=== PATIENT | female | born 1985 | race Caucasian/White ===

== ENCOUNTER 2023-03-10 00:39 | Emergency (ER) | payer SELFPAY ==
[~2023-03-10] VITALS: Ht 162.6 cm; Wt 105.2 kg
[2023-03-10 00:56] VITALS: BP 184/108; O2SAT 99
[2023-03-10] MEDS ORDERED: LIDOCAINE HCL/PF 1% 10 MG/ML 5ML VIAL INFIL ONE (01:30)
[2023-03-10] MEDS ORDERED: BACITRACIN ZINC OINT UDPKT TOP ONE (01:30)
[2023-03-10] MEDS ORDERED: IBUP-2029 PO (03:07)
[2023-03-10 03:41] VITALS: PULSE 82; RESP 16; TEMP 98.6
== END 2023-03-10 03:44 | disposition home or self-care (01) ==
LOC: ER 00:39
DX: S71.112A Laceration without foreign body, left thigh, initial encounter (principal); I10 Essential (primary) hypertension; W18.39XA Other fall on same level, initial encounter; Y93.89 Activity, other specified; Y92.89 Other specified places as the place of occurrence of the external cause; Y99.8 Other external cause status
CPT/HCPCS: 81025; 99282; Z7610 ×3